=== PATIENT | male | born 1975 | race Caucasian/White ===

== ENCOUNTER 2018-02-26 15:20 | Inpatient (IN) | payer MEDICAID, SELFPAY ==
[2018-02-26 15:43] VITALS: BMI 23.8
[2018-02-26 15:44] VITALS: BMI 23.8
--- NOTE | 2018-02-26 15:49 | PCM.HP.STD ---
Problem List (1) Alcohol abuse Status: Acute History of Present Illness Date of Admission: 02/26/18 Chief Complaint: FOR ALCOHOL WITHDRAWAL The patient is a 42 year old M history of alcohol abuse over 20 years and nicotine abuse for same duration. Was admitted on 02/26/2018 to the [facility] because he wanted to detox from alcohol. Patient drinks about 12 pack a day for the past 20 years and his last drink was last Monday, about 3 days ago at 9:30 PM. He also smokes about a pack a day for at least 20 years. He has never tried detox and denies any history of going into acute withdrawal and needed to be admitted. He says usually when he starts having tremors he finds a drink and goes away. Patient currently complains of spots in his eyes and a headache, as well as nausea. He denies any visual hallucinations or tactile hallucinations. He admits to tremors. Denies any fever or chills, any cough or chest pain, shortness of breath, any abdominal pain, any diarrhea vomiting. Review of systems otherwise negative. [] Past Medical History Home Medications: Ambulatory Orders Medication Instructions Recorded Clindamycin [Cleocin] 300 mg PO 4X/DAY 02/26/18 Ibuprofen [Advil] 200 mg PO Q4H PRN PRN 02/26/18 Ranitidine [Zantac] 150 mg PO DAILY 02/26/18 Surgical History: no surgical history Psychiatric History: No pertinent psych hx Lives: With Family Smoking Status: Current every day smoker Tobacco Use: Cigarettes Alcohol: Heavy Drugs: None - *Family History Maternal History Items: High Cholesterol, Heart Disease, Hypertension, - - alcohol abuse Paternal History Items: Diabetes, High Cholesterol, Heart Disease, Hypertension Review of Systems Constitutional: Reports: Weakness. Denies: Chills, Fever, Weight Change Eyes: Reports: Double vision. Denies: Blurred vision HEENT: Denies: Head Aches, Sinus Congestion, Sinus Drainage Cardiovascular: Denies: Chest Pain, Light Headedness, Palpitations Respiratory: Denies: Cough, Shortness of breath at rest, Sputum production Gastrointestinal: Reports: Nausea. Denies: Abdominal Pain, Dyspepsia, Vomiting Genitourinary: Denies: Dysuria Musculoskeletal: Denies: Joint Pain, Joint Tenderness Skin: Denies: Dryness, Rash, Wounds Neurological: Reports: Blurred vision, Headaches, Tremor. Denies: Change in Speech, Slurred speech, Confusion, Numbness, Tingling, Seizures Psychiatric: Denies: Anxiety, Depression, Homicidal Ideations, Suicidal Ideations Hematologic/ Lymphatic: Denies: Easy Bruising, Easy Bleeding VTE Information - Inpt Only VTE Present on Admission: No VTE Mechan Device Prophylaxis: None VTE Pharm Prophylaxis ordered?: Yes Patient Problems: Active and Suspected Problems Alcohol abuse (Acute) - Physical Exam General: Alert, Oriented x3, Cooperative, - - Mild distress HEENT: Atraumatic, PERRLA, EOMI, Normocephalic Oral: Moist Mucosa Neck: Supple, No JVD, Negative Carotid Bruits Lungs: Clear to auscultation, Normal air movement, No rhonchi, No wheeze, No rales Cardiovascular: Regular rate, Regular Rhythm, Normal S1, Normal S2, No murmurs Abdomen: Bowel Sounds Present, Soft, Non Tender, Non-Distended, No Hepato-splenomegaly Extremities: No clubbing, No cyanosis, No edema, Capillary Refill Less than 3 Seconds Skin: No rashes, No breakdown Musculoskeletal: No Tenderness to Palpation of Joints or Extremities Lymphatic: No Cervical, Supraclavicular, or Inguinal Adenopathy Neurological: Cranial nerves II-XII grossly intact, Neuro grossly intact, Motor Exam 5/5 strength throughout, Sensory exam intact to light touch and pain, - - No tremors noted on examination. Cerebellar examination normal, neurological examination was intact. Psych/Mental Status: Normal Affect, Appropriate, Alert and oriented to time, place, person, mood and affect Weight: 161 lb 2.526 oz Body Mass Index (BMI) 23.8 Assessment/Plan All Active Problems Alcohol abuse (Acute) 42-year-old male with a history of extensive alcohol abuse presenting for alcohol detox. 1. Alcohol abuse Strength was lacerated about 3 days ago at 9:30 PM. Complains of tremors but had no tremors on examination. Within window for going into DTs. Will admit to [facility] on the [facility] Check CBC and CMP. will check urine tox and serum alcohol level Will put on alcohol withdrawal protocol with Librium. Monitor CIWA protocol thiamine, multivite and folic acid supplementation will give zofran for nausea 2. Nicotine dependence smokes ~ 1 pack of cigarettes daily. nicotine patch prn 3. DVT prophylaxis: lovenox This note was generated with [employer] dictation software. It may contain incorrect words, spelling, and punctuation that were not noted in checking the note before signing. Code Visit Inpatient E&M: 54284 Init Hosp L2
--- NOTE | 2018-02-26 15:56 | HP.PCM_ITS ---
Problem List (1) Alcohol abuse Status: Acute History of Present Illness Date of Admission: 02/26/18 Chief Complaint: FOR ALCOHOL WITHDRAWAL The patient is a 42 year old M history of alcohol abuse over 20 years and nicotine abuse for same duration. Was admitted on 02/26/2018 to the [facility] because he wanted to detox from alcohol. Patient drinks about 12 pack a day for the past 20 years and his last drink was last Monday, about 3 days ago at 9:30 PM. He also smokes about a pack a day for at least 20 years. He has never tried detox and denies any history of going into acute withdrawal and needed to be admitted. He says usually when he starts having tremors he finds a drink and goes away. Patient currently complains of spots in his eyes and a headache, as well as nausea. He denies any visual hallucinations or tactile hallucinations. He admits to tremors. Denies any fever or chills, any cough or chest pain, shortness of breath, any abdominal pain, any diarrhea vomiting. Review of systems otherwise negative. [] Past Medical History Home Medications: Ambulatory Orders Medication Instructions Recorded Clindamycin [Cleocin] 300 mg PO 4X/DAY 02/26/18 Ibuprofen [Advil] 200 mg PO Q4H PRN PRN 02/26/18 Ranitidine [Zantac] 150 mg PO DAILY 02/26/18 Surgical History: no surgical history Psychiatric History: No pertinent psych hx Lives: With Family Smoking Status: Current every day smoker Tobacco Use: Cigarettes Alcohol: Heavy Drugs: None - *Family History Maternal History Items: High Cholesterol, Heart Disease, Hypertension, - - alcohol abuse Paternal History Items: Diabetes, High Cholesterol, Heart Disease, Hypertension Review of Systems Constitutional: Reports: Weakness. Denies: Chills, Fever, Weight Change Eyes: Reports: Double vision. Denies: Blurred vision HEENT: Denies: Head Aches, Sinus Congestion, Sinus Drainage Cardiovascular: Denies: Chest Pain, Light Headedness, Palpitations Respiratory: Denies: Cough, Shortness of breath at rest, Sputum production Gastrointestinal: Reports: Nausea. Denies: Abdominal Pain, Dyspepsia, Vomiting Genitourinary: Denies: Dysuria Musculoskeletal: Denies: Joint Pain, Joint Tenderness Skin: Denies: Dryness, Rash, Wounds Neurological: Reports: Blurred vision, Headaches, Tremor. Denies: Change in Speech, Slurred speech, Confusion, Numbness, Tingling, Seizures Psychiatric: Denies: Anxiety, Depression, Homicidal Ideations, Suicidal Ideations Hematologic/ Lymphatic: Denies: Easy Bruising, Easy Bleeding VTE Information - Inpt Only VTE Present on Admission: No VTE Mechan Device Prophylaxis: None VTE Pharm Prophylaxis ordered?: Yes Patient Problems: Active and Suspected Problems Alcohol abuse (Acute) - Physical Exam General: Alert, Oriented x3, Cooperative, - - Mild distress HEENT: Atraumatic, PERRLA, EOMI, Normocephalic Oral: Moist Mucosa Neck: Supple, No JVD, Negative Carotid Bruits Lungs: Clear to auscultation, Normal air movement, No rhonchi, No wheeze, No rales Cardiovascular: Regular rate, Regular Rhythm, Normal S1, Normal S2, No murmurs Abdomen: Bowel Sounds Present, Soft, Non Tender, Non-Distended, No Hepato- splenomegaly Extremities: No clubbing, No cyanosis, No edema, Capillary Refill Less than 3 Seconds Skin: No rashes, No breakdown Musculoskeletal: No Tenderness to Palpation of Joints or Extremities Lymphatic: No Cervical, Supraclavicular, or Inguinal Adenopathy Neurological: Cranial nerves II-XII grossly intact, Neuro grossly intact, Motor Exam 5/5 strength throughout, Sensory exam intact to light touch and pain, - - No tremors noted on examination. Cerebellar examination normal, neurological examination was intact. Psych/Mental Status: Normal Affect, Appropriate, Alert and oriented to time, place, person, mood and affect Weight: 161 lb 2.526 oz Body Mass Index (BMI) 23.8 Assessment/Plan All Active Problems Alcohol abuse (Acute) 42-year-old male with a history of extensive alcohol abuse presenting for alcohol detox. 1. Alcohol abuse * Strength was lacerated about 3 days ago at 9:30 PM. Complains of tremors but had no tremors on examination. * Within window for going into DTs. * Will admit to [facility] the [facility] * Check CBC and CMP. will check urine tox and serum alcohol level * Will put on alcohol withdrawal protocol with Librium. * Monitor CIWA protocol * thiamine, multivite and folic acid supplementation * will give zofran for nausea * 2. Nicotine dependence * smokes ~ 1 pack of cigarettes daily. * nicotine patch prn * 3. DVT prophylaxis: lovenox This note was generated with [employer] dictation software. It may contain incorrect words, spelling, and punctuation that were not noted in checking the note before signing. Code Visit Inpatient E&M: 18756 Init Hosp L2
[2018-02-26 16:00] VITALS: BP 146/95; PULSE 68; RESP 18; TEMP 36.8; O2SAT 98
[2018-02-26 16:27] LABS: Hematocrit 41.8 % (40-54); Hemoglobin 14.2 g/dl (13.0-16.5); Mean Corpuscular Hgb 30.4 pg (27.0-32.0); Mean Corpuscular Volume 89.5 fL (80-94); Mean Platelet Vol. 9.7 fl (6.2-12.0); Platelet Count 275 K/mm3 (150-450); RBC Distribution Width CV 13.8 % (11.6-14.6); RBC Distribution Width SD 44.7 fl (35.1-43.9); Red Blood Count 4.67 M/mm3 (4.6-6.2); White Blood Count 9.2 K/mm3 (4.4-11.0)
[2018-02-26 16:29] LABS: Scan Indicated on CBC? Y/N NO
[2018-02-26] MEDS: Dicyclomine 10 MG Capsule 20 MG PO (17:09)
[2018-02-26] MEDS: chlordiazePOXIDE 25 MG Capsule PO ×2 (17:09→22:41)
[2018-02-26] MEDS: hydrOXYzine PAM 25 MG Capsule 50 MG PO (17:09)
[2018-02-26 17:13] LABS: Alcohol, Blood (Medical)-Serum < 3.0 mg/dL
[2018-02-26 17:17] LABS: AST(SGOT) 15 U/L (15-37); Alanine Aminotransfer ALT/SGPT 22 U/L (16-61); Albumin, Serum 3.3 g/dL (3.2-5.0); Alkaline Phosphatase 61 U/L (45-117); Anion Gap 7 (5-15); BUN 6 mg/dL (7-18); Bilirubin, Direct 0.06 mg/dL (0.00-0.30); Calcium,Total 8.6 mg/dL (8.5-10.1); Chloride 109 mmol/L (98-107); Creatinine, Serum 0.86 mg/dL (0.70-1.30); EST Glomerular Filtration Rate 103 mL/min (>60); Est Glom Filt Rate - Afr Amer 125 mL/min (>60); Estimated Creatinine Clearance 110.75 ml/min; Globulin 3.4 g/dL (2.2-4.2); Glucose 92 mg/dL (74-106); Potassium 3.6 mmol/L (3.5-5.1); Protein, Total 6.7 g/dL (6.4-8.2); Sodium Level 141 mmol/L (136-145)
[2018-02-26 17:20] VITALS: O2SAT 98
[2018-02-26] MEDS: Clindamycin HCl 150 MG Capsule 300 MG PO ×2 (17:20→22:42)
[2018-02-26] MEDS: Thiamine Hydrochloride 100 MG Tablet PO (17:21)
[2018-02-26 18:43] LABS: Amphetamine Urine VISTA NEGATIVE (<1000 ng/mL); Barbiturate Urine VISTA NEGATIVE (< 200 ng/mL); Benzodiazepine Urine VISTA NEGATIVE (< 200 ng/mL); Cocaine Urine VISTA NEGATIVE (< 300 ng/mL); Ecstacy Urine VISTA NEGATIVE (< 500 ng/mL); Methadone Urine VISTA NEGATIVE (< 300 ng/mL); PCP Urine VISTA NEGATIVE (< 25 ng/mL); THC Urine VISTA NEGATIVE (< 50 ng/mL); Vista UDS pH Range 5
[2018-02-26 22:31] VITALS: BP 131/92; PULSE 69; RESP 16; TEMP 36.6; O2SAT 99
[2018-02-26] MEDS: Famotidine 20 MG Tablet PO (22:41)
[2018-02-26] MEDS: Ondansetron ODT 4 MG Tablet 8 MG PO (22:42)
[2018-02-27] VITALS (8 sets, daily range): BP systolic 123–138; BP diastolic 79–98; PULSE 63–79; RESP 14–18; TEMP 36.3–36.9; O2SAT 96–100
[2018-02-27] MEDS: Dicyclomine 10 MG Capsule 20 MG PO ×2 (02:37→10:06)
[2018-02-27] MEDS: hydrOXYzine PAM 25 MG Capsule 50 MG PO (02:38)
[2018-02-27] MEDS: Acetaminophen 325 MG Tablet 650 MG PO ×3 (03:06→21:54)
[2018-02-27] MEDS: chlordiazePOXIDE 25 MG Capsule PO ×3 (05:23→18:02)
[2018-02-27 07:51] LABS: Hematocrit 42.6 % (40-54); Hemoglobin 14.4 g/dl (13.0-16.5); Mean Corp Hgb Conc 33.8 g/gl (32-36); Mean Corpuscular Hgb 30.3 pg (27.0-32.0); Mean Corpuscular Volume 89.7 fL (80-94); Mean Platelet Vol. 10.2 fl (6.2-12.0); Platelet Count 282 K/mm3 (150-450); RBC Distribution Width CV 13.9 % (11.6-14.6); RBC Distribution Width SD 45.4 fl (35.1-43.9); Red Blood Count 4.75 M/mm3 (4.6-6.2); White Blood Count 8.2 K/mm3 (4.4-11.0)
[2018-02-27 07:52] LABS: Scan Indicated on CBC? Y/N NO
[2018-02-27] MEDS: Thiamine Hydrochloride 100 MG Tablet PO ×2 (08:10→18:02)
[2018-02-27] MEDS: Folic Acid 1 MG Tablet PO (08:10)
[2018-02-27] MEDS: Famotidine 20 MG Tablet PO (08:10)
[2018-02-27] MEDS: Multivitamins,Ther W-Minerals Tablet 1 TABLET PO (08:10)
[2018-02-27] MEDS: Clindamycin HCl 150 MG Capsule 300 MG PO ×4 (10:01→21:54)
--- NOTE | 2018-02-27 12:49 | CHAPLAIN ---
Type of Pastoral Visit _x__ Initial Visit ___ Follow-up Visit ___ On-call Visit ___ General Patient Visit ___ Spiritual Assessment ___ Family Conference ___ Bereavement ___ Rapid Response ___ Code Blue ___ Other (describe below) Pastoral Care Referral From _x__ Patient ___ Family ___ Nurse ___ Physician ___ Tobacco Blender ___ Chemical Tester ___ Other (describe below) Sacrament/Intervention _x__ Active listening ___ Anointing ___ Spiritism ___ Bereavement ___ Communion _x__ Crystal exploration ___ _x__ Life review _x__ Prayer ___ Reconciliation ___ Sacrament of Sick _x__ Supportive presence ___ Wedding ___ Other (describe below) Pastoral Comments patient has an intellectual understanding of what he needs to do to gain a sober life; affirmation of pt understanding and desire to make life changes; pt reports having family and friend support; pt also acknowledges some family and friends are not helpful and will have to be avoided in the future; pt has been assisted with a plan for his recovery after discharge; pt does not have a synagogue system and does not desire to talk about that but is open to conversation and emotional support; 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
[2018-02-27] MEDS: Ondansetron ODT 4 MG Tablet 8 MG PO (15:07)
--- NOTE | 2018-02-27 18:54 | PCM.PROGNOTE ---
Patient Problems: Active and Suspected Problems Alcohol abuse (Acute) Subjective: Patient was seen and examined today, he complains of a slight headache today but otherwise he states he is doing well. Patient appears sleepy today, he does not appear anxious. - Physical Exam General: Alert, Oriented x3, Cooperative, No apparent distress, Well developed, Well nourished HEENT: Atraumatic, PERRLA, EOMI, Normocephalic Oral: Moist Mucosa Neck: Supple, No JVD, No Nuchal Rigidity, Trachea Midline, Thyroid Normal Size and Texture Lungs: Clear to auscultation, Normal air movement, No rhonchi, No wheeze, No rales Cardiovascular: Regular rate, Regular Rhythm, Normal S1, Normal S2, No murmurs, No Ectopic Activity, PMI Normal, No rub noted, No Gallop Abdomen: Bowel Sounds Present, Soft, Non Tender, Non-Distended, No hernias noted Extremities: No clubbing, No cyanosis, No edema, Capillary Refill Less than 3 Seconds Skin: No rashes, No breakdown Musculoskeletal: No Tenderness to Palpation of Joints or Extremities Neurological: Cranial nerves II-XII grossly intact, Neuro grossly intact, Muscle tone normal, Sensory exam intact to light touch and pain, Coordination normal Psych/Mental Status: Normal Affect, Appropriate, Alert and oriented to time, place, person, mood and affect Vital Signs Temp Pulse Resp BP Pulse Ox 98.4 F 78 18 138/94 H 98 02/27/18 14:00 02/27/18 14:00 02/27/18 14:00 02/27/18 14:00 02/27/18 15:03 Oxygen Delivery Method Room Air Weight: 72 kg Body Mass Index (BMI) 23.8 Laboratory Tests Past 24 Hrs 02/27/18 07:18 WBC 8.2 RBC 4.75 Hgb 14.4 Hct 42.6 MCV 89.7 MCH 30.3 MCHC 33.8 RDW 13.9 RDW Differential 45.4 H Plt Count 282 MPV 10.2 Medical Necessity - Tobacco Use Smoking Status: Current every day smoker Tobacco Use: Cigarettes Assessment/Plan All Active Problems Alcohol abuse (Acute) #1 alcohol withdrawal-continue present medications #2 chronic alcoholism Code Visit Inpatient E&M: 65043 Subs Hosp L2
[2018-02-27] MEDS: Nicotine Polacrilex 2 MG GUM PO (20:26)
[2018-02-28] VITALS (7 sets, daily range): BP systolic 107–147; BP diastolic 78–106; PULSE 64–79; RESP 14–22; TEMP 36.4–36.7; O2SAT 98–100
[2018-02-28] MEDS: chlordiazePOXIDE 25 MG Capsule PO ×3 (01:57→18:18)
[2018-02-28] MEDS: Nicotine Polacrilex 2 MG GUM PO ×2 (06:47→11:27)
[2018-02-28] MEDS: Famotidine 20 MG Tablet PO (07:46)
[2018-02-28] MEDS: Thiamine Hydrochloride 100 MG Tablet PO ×2 (07:46→18:18)
[2018-02-28] MEDS: Folic Acid 1 MG Tablet PO (07:46)
--- NOTE | 2018-02-28 10:26 | PCM.PROGNOTE ---
Patient Problems: Active and Suspected Problems Alcohol abuse (Acute) Subjective: Patient was seen and examined today, he has no specific complaints, he does not complain of any nervousness or tremor. - Physical Exam General: Alert, Oriented x3, Cooperative, No apparent distress, Well developed, Well nourished HEENT: Atraumatic, PERRLA, EOMI, Normocephalic Oral: Moist Mucosa Neck: Supple, No JVD, No Nuchal Rigidity, Trachea Midline, Thyroid Normal Size and Texture Lungs: Clear to auscultation, Normal air movement, No rhonchi, No wheeze, No rales Cardiovascular: Regular rate, Regular Rhythm, Normal S1, Normal S2, No murmurs, No Ectopic Activity Abdomen: Bowel Sounds Present, Soft, Non Tender, Non-Distended, No hernias noted Extremities: No clubbing, No cyanosis, No edema Skin: No rashes, No breakdown Musculoskeletal: No Tenderness to Palpation of Joints or Extremities Neurological: Cranial nerves II-XII grossly intact, Neuro grossly intact, Sensory exam intact to light touch and pain, Coordination normal Psych/Mental Status: Normal Affect, Appropriate, Alert and oriented to time, place, person, mood and affect Vital Signs Temp Pulse Resp BP Pulse Ox 97.7 F L 64 16 115/82 H 98 02/28/18 07:41 02/28/18 07:41 02/28/18 07:41 02/28/18 07:41 02/28/18 08:01 Oxygen Delivery Method Room Air Weight: 72 kg Body Mass Index (BMI) 23.8 Medical Necessity - Tobacco Use Smoking Status: Current every day smoker Tobacco Use: Cigarettes Assessment/Plan All Active Problems Alcohol abuse (Acute) #1 alcohol withdrawal-continue present medications, patient is not currently having any severe withdrawal symptoms #2 chronic alcoholism Code Visit Inpatient E&M: 77616 Subs Hosp L2
[2018-02-28] MEDS: Multivitamins,Ther W-Minerals Tablet 1 TABLET PO (11:07)
[2018-02-28] MEDS: Clindamycin HCl 150 MG Capsule 300 MG PO ×4 (11:07→22:15)
[2018-02-28] MEDS: Acetaminophen 325 MG Tablet 650 MG PO ×2 (11:31→19:29)
--- NOTE | 2018-02-28 15:51 | NURSING ---
patient requesting prescription for nicotene patch, nicotene gum and ensure prior to d/c. Notified same would be passed along for probable d/c tomorrow.
--- NOTE | 2018-02-28 16:38 | PCM.PROGNOTE ---
Patient Problems: Active and Suspected Problems Alcohol abuse (Acute) Subjective: Patient seen and examined today, patient has no new complaints, anticipate discharge tomorrow - Physical Exam General: Alert, Oriented x3, Cooperative, No apparent distress, Well developed, Well nourished HEENT: Atraumatic, PERRLA, EOMI, Normocephalic Oral: Moist Mucosa Neck: Supple, No JVD, No Nuchal Rigidity, Trachea Midline, Thyroid Normal Size and Texture Lungs: Clear to auscultation, Normal air movement, No rhonchi, No wheeze, No rales Cardiovascular: Regular rate, Regular Rhythm, Normal S1, Normal S2, No murmurs, No Ectopic Activity, PMI Normal, No rub noted, No Gallop Abdomen: Bowel Sounds Present, Soft, Non Tender Extremities: No edema, Capillary Refill Less than 3 Seconds Skin: No rashes, No breakdown Musculoskeletal: No Tenderness to Palpation of Joints or Extremities Neurological: Cranial nerves II-XII grossly intact, Neuro grossly intact, Sensory exam intact to light touch and pain, Coordination normal Psych/Mental Status: Normal Affect, Appropriate, Alert and oriented to time, place, person, mood and affect Vital Signs Temp Pulse Resp BP Pulse Ox 98.1 F 71 18 124/88 H 98 02/28/18 14:00 02/28/18 14:00 02/28/18 14:00 02/28/18 14:00 02/28/18 08:01 Oxygen Delivery Method Room Air Weight: 72 kg Body Mass Index (BMI) 23.8 Medical Necessity - Tobacco Use Smoking Status: Current every day smoker Tobacco Use: Cigarettes Assessment/Plan All Active Problems Alcohol abuse (Acute) #1 alcohol withdrawal-continue present medications, patient is not currently having any severe withdrawal symptoms, he remains medically stable #2 chronic alcoholism Code Visit Inpatient E&M: 06784 Subs Hosp L2
[2018-02-28] MEDS: Ondansetron ODT 4 MG Tablet 8 MG PO (19:30)
[2018-03-01 03:33] VITALS: BP 113/83; PULSE 74; RESP 16; TEMP 36.6
[2018-03-01] MEDS: Ondansetron ODT 4 MG Tablet 8 MG PO (03:43)
[2018-03-01] MEDS: Nicotine Polacrilex 2 MG GUM PO (03:44)
[2018-03-01] MEDS: chlordiazePOXIDE 25 MG Capsule PO (06:27)
[2018-03-01 07:09] VITALS: O2SAT 92
[2018-03-01] MEDS: Acetaminophen 325 MG Tablet 650 MG PO (07:33)
[2018-03-01] MEDS: Folic Acid 1 MG Tablet PO (07:34)
[2018-03-01] MEDS: Multivitamins,Ther W-Minerals Tablet 1 TABLET PO (07:34)
[2018-03-01] MEDS: Thiamine Hydrochloride 100 MG Tablet PO (07:34)
[2018-03-01] MEDS: Famotidine 20 MG Tablet PO (08:34)
[2018-03-01 08:35] VITALS: BP 120/85; PULSE 68; RESP 18; TEMP 36.8; O2SAT 92
[2018-03-01] MEDS: Clindamycin HCl 150 MG Capsule 300 MG PO (08:35)
--- NOTE | 2018-03-01 11:30 | DCINST_ITS ---
- Discharge Diagnoses Current Active Problems: Current Active and Chronic Problems Alcohol abuse (Acute) You will use the following diet at home:: No restrictions Your food should be the consistency of: Regular Your liquids should be the consistency of: Regular/Thin Discharge Activity: Return to Normal Activity Allergies/Adverse Reactions: Allergies No Known Allergies Allergy (Verified 02/26/18 16:07) Medications to take at Discharge Clindamycin [Cleocin] 300 mg PO 4X/DAY 02/26/18 Ibuprofen [Motrin] 200 mg PO Q4H PRN PRN 02/26/18 Ranitidine [Zantac] 150 mg PO DAILY 02/26/18 Primary Care Physician: Care Physician,No Primary [Primary Care Provider] - Please follow up with your Primary Care Physician in: as needed Test Results: Test results from this visit will be discussed in further detail at your follow- up appointment, if applicable.
--- NOTE | 2018-03-01 12:43 | CHAPLAIN ---
Type of Pastoral Visit ___ Initial Visit _x__ Follow-up Visit ___ On-call Visit ___ General Patient Visit ___ Spiritual Assessment ___ Family Conference ___ Bereavement ___ Rapid Response ___ Code Blue ___ Other (describe below) Pastoral Care Referral From _x__ Patient ___ Family ___ Nurse ___ Physician ___ General Repair Mechanic ___ Feed Manager ___ Other (describe below) Sacrament/Intervention _x__ Active listening ___ Anointing ___ Oriental Orthodox ___ Bereavement ___ Communion ___ Crystal exploration ___ ___ Life review _x__ Prayer ___ Reconciliation ___ Sacrament of Sick _x__ Supportive presence ___ Wedding ___ Other (describe below) Pastoral Comments patient has completed his stabilization and will be discharged shortly; pt repeats his goals and motivation for sobriety; expresses thankfulness for his resources and support system; affirmation of plan and goals given; listening ear and presence
[2018-03-01 12:55] VITALS: BP 118/78; PULSE 68; RESP 18; TEMP 36.6; O2SAT 99
--- NOTE | 2018-03-05 10:12 | PCM.DC.SUM ---
Discharge Date and Diagnosis Date of Admission: 02/26/18 Date of Discharge: 03/01/18 - Primary Discharge Diagnosis #1 alcohol withdrawal (acute) #2 chronic alcoholism Hospital Course and Treatment Operations: None Procedures: None Summary of Care Provided: The patient is a 42 year old M was directly admitted into the medical stabilization program at [facility] due to alcohol withdrawal and alcoholism. He desired to undergo detox, order sets were entered using the medical stabilization order sets. During his hospitalization, patient had no complications, on 03/01/18, patient was seen and examined felt in stable condition for discharge Discharge Activity: Return to Normal Activity Home Medications: Medications to take at Discharge Clindamycin [Cleocin] 300 mg PO 4X/DAY 02/26/18 Ibuprofen [Motrin] 200 mg PO Q4H PRN PRN 02/26/18 Ranitidine [Zantac] 150 mg PO DAILY 02/26/18 Primary Care Physician: Care Physician,No Primary [Primary Care Provider] - Please follow up with your Primary Care Physician in: as needed Disposition: Home Minutes spent on discharge:: 34 Patient Condition:: Stable Medical Necessity - Tobacco Use Smoking Status: Current every day smoker Tobacco Use: Cigarettes Meaningful Use Info Meaningful Use Diagnoses (Choose all that apply): None applicable Code Visit Inpatient E&M: 99112 Disch Hosp
--- NOTE | 2018-03-05 10:15 | DS.PCM_ITS ---
Discharge Date and Diagnosis Date of Admission: 02/26/18 Date of Discharge: 03/01/18 - Primary Discharge Diagnosis #1 alcohol withdrawal (acute) #2 chronic alcoholism Hospital Course and Treatment Operations: None Procedures: None Summary of Care Provided: The patient is a 42 year old M was directly admitted into the medical stabilization program at [facility] due to alcohol withdrawal and alcoholism. He desired to undergo detox, order sets were entered using the medical stabilization order sets. During his hospitalization, patient had no complications, on 03/01/18, patient was seen and examined felt in stable condition for discharge Discharge Activity: Return to Normal Activity Home Medications: Medications to take at Discharge Clindamycin [Cleocin] 300 mg PO 4X/DAY 02/26/18 Ibuprofen [Motrin] 200 mg PO Q4H PRN PRN 02/26/18 Ranitidine [Zantac] 150 mg PO DAILY 02/26/18 Primary Care Physician: Care Physician,No Primary [Primary Care Provider] - Please follow up with your Primary Care Physician in: as needed Disposition: Home Minutes spent on discharge:: 34 Patient Condition:: Stable Medical Necessity - Tobacco Use Smoking Status: Current every day smoker Tobacco Use: Cigarettes Meaningful Use Info Meaningful Use Diagnoses (Choose all that apply): None applicable Code Visit Inpatient E&M: 88241 Disch Hosp
== END 2018-03-01 13:00 | disposition home or self-care (01) | DRG 435 ==
PROVIDERS: Admitting Provider Student in an Organized Health Care Education/Training Program; Visit Provider Internal Medicine
DX: F10.239 Alcohol dependence with withdrawal, unspecified (principal); Y90.9 Presence of alcohol in blood, level not specified; F17.210 Nicotine dependence, cigarettes, uncomplicated
CPT/HCPCS: 80048; 80076; 80307; 80320; 85027; 97802; 99406; G0480